=== PATIENT | female | born 1970 | race African-American/Black ===

== ENCOUNTER 2016-09-05 18:14 | Emergency (ER) | payer OTHER ==
[~2016-09-05] VITALS: Ht 154.9 cm; Wt 72.6 kg
[2016-09-05 21:05] LABS: BASOPHIL % 0.4 % (0-2); RED CELL DISTRIBUTION WIDTH 14.3 % (11.5-14.5)
[2016-09-05 21:07] LABS: CALCIUM 8.9 mg/dL (8.5-10.1); CARBON DIOXIDE 27.6 mmol/L (21-32); CHLORIDE SERUM 107 mmol/L (98-107); GFR1 > 60 mL/min; GLUCOSE SERUM 93 mg/dL (74-106); POTASSIUM SERUM 3.9 mmol/L (3.5-5.1); SODIUM SERUM 143 mmol/L (136-145)
[2016-09-05 21:12] LABS: ALBUMIN 3.9 g/dL (3.4-5.0); ALKALINE PHOSPHATASE 63 U/L (46-116); ALT/SGPT 25 U/L (14-59); AST/SGOT 15 U/L (15-37); BILIRUBIN TOTAL 0.44 mg/dL (0.20-1.00); PLATELET COUNT 136 x10^3mcL (130-400); TOTAL PROTEIN, SERUM 7.9 g/dL (6.4-8.2)
[2016-09-05 22:26] VITALS: BP 133/83
== END 2016-09-05 22:26 | disposition home or self-care (01) ==
LOC: ED 18:14
PROVIDERS: Emergency Medicine
DX: R51 Headache (principal); R21 Rash and other nonspecific skin eruption
CPT/HCPCS: 36415; J1885